=== PATIENT | female | born 1975 | race Caucasian/White ===

== ENCOUNTER → 2017-04-05 | Outpatient (CLI) | payer OTHER ==
[~2017-04-05] MED LIST: AMBIEN 10 MG TA10 MG PO; AMITRIPTYLINE; AMITRIPTYLINE H10 M1 PO; AMITRIPTYLINE H25 M2 PO; AMITRIPTYLINE H50 M2 PO; BACLOFEN 10MG T10 M1 PO; BACLOFEN 10MG T10 MG PO; CARBAMAZEPINE200 M2; CELEBREX 200 M200 MG PO; ELAVIL PO; FLEXERIL PO; IRON325 PO; LO-OVRAL-281 EACH PO; LYRICA 50 MG50 M1 PO; METHADONE HCL5 MG PO; MOVANTIK12.5 MG PO; MULTIVITAMIN; NAPROXEN 500MG500 MG PO; NEURONTIN 300300 M1; NEURONTIN 300300 M1 PO; NEXIUM40 MG PO; OXYCODONE HCL10 MG PO; OXYCODONE HCL15 MG PO; OXYCONTIN10 M1 PO; PERCOCET 7.5-31 EACH PO; REMERON15 MG PO; REMERON30 MG PO; REMERON45 MG PO; RESTORIL15 MG PO; RESTORIL30 MG PO; ROXICODONE5 M2 PO; SYNTHROID175 MCG PO; VITAMIN D 5050000 I1 PO; VITAMIN D2000 UNIT PO; XANAX 0.5 MG0.5 MG PO; tegretol PO; xanax
--- NOTE | 2017-04-07 09:59 | PAINCON ---
[facility] [address] [place] [address] PAIN MANAGEMENT CONSULTATION Name: DAVI LAWRENCE Room: [facility] Rm#: [id number] Admission: 04/05/17 Attend Phys: Leander Jennings Discharge: Date of : 75 Report #: [id number] THIS REPORT FOR: //name// CC: Celestino Marcus DATE OF SERVICE: 04/05/2017 The patient is a 41-year-old female being treated for neuropathic pain, RSD right upper extremity requiring high risk complex medication management. Last seen in pain clinic 02/08/2017. Continued on baseline medication including methadone 5 mg 2 tablets t.i.d., oxycodone 10 mg up to 5 a day, gabapentin 300 mg t.i.d., baclofen 10 mg 3 at bedtime, temazepam 30 mg at bedtime, and mirtazapine 30 mg at bedtime. Last random drug screen 05/25/2016, was positive for prescribed medications and no others. The patient returns to pain clinic today. She has been getting a little more active with her , they were going on recreational walks and trying to generally promote healthier lifestyle. Unfortunately, with the sub-zero weather in [place] past month, their outdoor walks have been somewhat curtailed. She returns to pain clinic today, notes pain is a 6-7 on a VAS, having somewhat of a flareup presently. PHYSICAL EXAMINATION: Shows a pleasant 41-year-old female, 5 feet 6 inches, 164 pounds, BMI is 26.6 kg/m2. Blood pressure is modestly elevated at 129/88, pulse 92, and respirations 16. Alert and oriented to person, place and time, judged to be a reasonable historian. She does appear a little depressed today, struggling with some increasing pain. Right upper extremity does appear a little more erythematous. Erythema and light touch allodynia noted in right upper extremity. Decreased range of motion with some swelling in the fingers on the right hand. Otherwise, physical exam is unchanged. We reviewed the fact that opiate medications are being used to provide analgesia adequate to support activities of daily living, not attempting to achieve a specific pain score on the 0-10 Visual Analog Scale. The current opiate medications are providing sufficient analgesia to allow the patient to participate in activities of daily living. The patient is not exhibiting any aberrant behavior suggestive of drug diversion. The patient is not having any adverse reactions to medications. The patient is not suffering from daytime somnolence or mental acuity changes. The patient is managing opiate-induced constipation with appropriate kcax-cpe-iasmekl agents and dietary considerations. The patient was counseled on concern for caution with operating a motor vehicle while [place] [address] PAIN MANAGEMENT CONSULTATION Name: DAVI LAWRENCE [id number] Admission: 04/05/17 Attend Phys: Leander Jennings Discharge: Date of : 75 Report #: [id number] A physical exam was performed and the patient's functional status was evaluated. All patients with back pain were advised against the bed rest greater than 4 days and were advised to return to normal activities. Pain score assessment was noted and the treatment plan was reviewed with the patient. All current medications, both prescribed and OTC were reviewed and reconciled on the electronic medical record. Tobacco screening was accomplished and smoking cessation was advised when indicated. BMI was noted and diet/exercise modification was recommended for all patients following outside normal parameters. I reviewed with the patient today their responsibilities to safeguard prescription medications, reviewed their responsibility to utilize medications only as prescribed by the physician. They are to seek and receive pain medications only from 1 physician group ( [facility]). They are to use 1 pharmacy and keep the clinic informed if they change pharmacies. Their responsibilities include making followup visits in a timely fashion and to avoid abrupt discontinuation of medication usage. Their responsibilities further include bringing their medications (bottles from the pharmacy with residual pills) to the visit for possible confirmation of pill counts and the patient understands it is their responsibility to submit to random drug screens to ensure both that the medications prescribed are present, and that no other controlled substances are present. All prescriptions provided today were generated electronically. ASSESSMENT: Neuropathic pain, right upper extremity reflex sympathetic dystrophy requiring high risk complex medication management. RECOMMENDATIONS: A long discussion with the patient today. We reviewed the fact that she is on roughly 190 mEq of morphine a day. This is the supratherapeutic dose. We talked about ultimately weaning opiate overtime. Presently with an acute flare, we will continue current medication unchanged for 1 month. On the "4-week release" oxycodone prescription, we will decrease from 150-120 tablets, decreasing from q.4 hours max 5 a day to q.6 hours max 4 a day. Follow up in 2 months for reevaluation. We will likely plan to decrease methadone from 2 tablets 3 times a day to 2 tablets in the morning, 1 at noon and 2 at night. We will try and further wean oxycodone as able. Discharged in good and stable condition. Follow up in 2 months for reevaluation. <ELECTRONICALLY SIGNED> By: Eric Marcus DO 04/07/17 0959 [id number] [id number] Hospital[facility]vin Marcus DO /elda
== END ==
LOC: M.PC 02:32
DX: G90.511 Complex regional pain syndrome I of right upper limb (principal); Z79.899 Other long term (current) drug therapy

== ENCOUNTER → 2017-05-31 | Outpatient (CLI) | payer OTHER ==
--- NOTE | 2017-06-07 07:59 | PAINCON ---
[address] [address] PAIN MANAGEMENT CONSULTATION Name: DAVI LAWRENCE Room: [facility] Abdalla#: [id number] Admission: 05/31/17 Attend Phys: Leander Jennings Discharge: Date of : 75 Report #: [id number] THIS REPORT FOR: //name// CC: Celestino Marcus DATE OF SERVICE: 05/31/2017 HISTORY OF PRESENT ILLNESS: The patient is a 41-year-old female being treated for neuropathic pain, right upper extremity RSD, requiring complex medication management, a component of some depression. Last visit on 04/05/2017, we had attempted to wean opiate; she was using oxycodone 15 mg up to 5 a day. We dropped down to 4 a day. She uses methadone 10 mg 2 tablets 3 times a day. Current opiate load is near 200 mEq of morphine. Returns to the pain clinic today. She is having increasing pain in the right upper extremity. She has obvious swelling in the right hand, increased erythema, increased hyperpathia and allodynia. She is losing strength in that right hand. Hand grasp is significantly diminished compared to the left. The patient is frustrated with increasing pain, trying to lower opiate. We pointed out that she is on an unsustainable level of opiate, we will need to wean at some point. Given the lack of efficacy of prior interventions including stellate ganglion blocks, we had a long discussion today about a spinal cord stimulator as a possible therapeutic option. 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 If we are going to trial, stimulator will be best for her to schedule in the early summer. I did give the patient printed and video literature regarding the high frequency Nevro spinal cord stimulator, which I think would be an excellent option. Did have a moderately prolonged visit today with the patient and her reviewing therapeutic concerns for supratherapeutic opiate use, hyperpathia and habituation. Opiate drug screen was accomplished today. No aberrant behavior suggestive of drug diversion, simply complying with opiate consent to treat contract. Again, I did provide the patient with printed and video literature regarding high frequency spinal cord stimulator (Nevro). We will continue baseline narcotic including methadone 5 mg 2 tablets b.i.d., roughly equivalent to 100 mg of morphine. We will resume oxycodone 10 mg up to 5 a day, roughly equivalent to 75 mg of morphine, total daily dose of 195 mEq of morphine. We will continue Remeron at bedtime for sleep along with temazepam, gabapentin unchanged, [place] [address] PAIN MANAGEMENT CONSULTATION Name: DAVI LAWRENCE Room: [facility] Rm#: [id number] Admission: 05/31/17 Attend Phys: Leander Jennings Discharge: Date of : 75 Report #: [id number] Discharged in good and stable condition after prolonged visit. Follow up in 2 months for reevaluation. We will answer any questions regarding stimulators at that time. We will continue that conversation as well. <ELECTRONICALLY SIGNED> By: Eric Marcus DO 06/07/17 0759 1404 [id number] Marcus DO /nt
== END ==
LOC: M.PC 04:53
DX: M79.2 Neuralgia and neuritis, unspecified (principal); F32.9 Major depressive disorder, single episode, unspecified; Z79.899 Other long term (current) drug therapy

== ENCOUNTER → 2017-07-26 | Outpatient (CLI) | payer OTHER ==
[~2017-07-26] MED LIST changes: +REMERON 30 MG T30 M1 PO
--- NOTE | 2017-07-31 08:35 | PAINCON ---
[facility] [address] [place] [address] PAIN MANAGEMENT CONSULTATION Name: ADVI LAWRENCE Room: [facility] Abdalla#: [id number] Admission: 07/26/17 Attend Phys: Leander Jennings Discharge: Date of : 75 Report #: [id number] THIS REPORT FOR: //name// CC: Celestino Marcus The patient is a pleasant 41-year-old female I have treated for quite some time for neuropathic pain, right upper extremity secondary to RSD. I believe I initially saw her as a patient back in 07/2008. Did a series of right stellate ganglion blocks with some incremental relief. Ultimately, we have titrated medication to functional status. We had ultimately escalated her analgesic regimen to include methadone 5 mg 2 tablets t.i.d. (30 mg of methadone roughly equivalent to 120 morphine equivalents) along with oxycodone up to 15 mg 5 a day. At a recent prior visit we had decreased oxycodone 10 mg 5 a day. She returned to the pain clinic today. Her last random drug screen on 05/31/2017 was positive for prescribed medications. We did review our opiate consent to treat contract again today. We had a prolonged visit today. She was seen from 8:25 to 8:55, greater than 50% of this 25+ minute visit was spent counseling the patient, reviewing concerns for opiate-induced hyperalgesia and concerns for supratherapeutic opiate load. The patient notes pain is about 4 to 5 on a VAS. She does little better in the warm weather. 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 She has been increasing physical activity recently. PHYSICAL EXAMINATION: Shows pleasant 41-year-old female, BMI is 26.9 kilograms per meter squared. Blood pressure 144/90, pulse 88 and respirations 16. Alert and oriented to person, place and time, judged to be a reasonable historian. Cervical range of motion is full. Does have hyperpathia and allodynia about the right forearm and wrist. Decreased hand grasp right side. Some skin changes are noted compatible with RSD. Otherwise, she is alert and oriented to person, place and time, judged to be a reasonable historian. Gait is tandem. Lower extremity strength is preserved. We reviewed the fact that opiate medications are being used to provide analgesia adequate to support activities of daily living, not attempting to achieve a specific pain score on the 0-10 Visual Analog Scale. The current opiate medications are providing sufficient analgesia to allow the patient to participate in activities of daily living. The patient is not exhibiting any aberrant behavior suggestive of drug diversion. The patient is not having any adverse reactions to medications. The patient is not suffering from daytime somnolence or mental acuity changes. The patient is managing opiate-induced constipation with appropriate yqmd-hfl-dsshc[place] [address] PAIN MANAGEMENT CONSULTATION Name: DAVI LAWRENCE Room: [facility]#: [id number] Admission: 07/26/17 Attend Phys: Leander Jennings Discharge: Date of : 75 Report #: [id number] considerations. The patient was counseled on concern for caution with operating a motor vehicle while using opiate medications. A physical exam was performed and the patient's functional status was evaluated. All patients with back pain were advised against the bed rest greater than 4 days and were advised to return to normal activities. Pain score assessment was noted and the treatment plan was reviewed with the patient. All current medications, both prescribed and OTC were reviewed and reconciled on the electronic medical record. Tobacco screening was accomplished and smoking cessation was advised when indicated. BMI was noted and diet/exercise modification was recommended for all patients following outside normal parameters. I reviewed with the patient today their responsibilities to safeguard prescription medications, reviewed their responsibility to utilize medications only as prescribed by the physician. They are to seek and receive pain medications only from 1 physician group ( [facility]). They are to use 1 pharmacy and keep the clinic informed if they change pharmacies. Their responsibilities include making followup visits in a timely fashion and to avoid abrupt discontinuation of medication usage. Their responsibilities further include bringing their medications (bottles from the pharmacy with residual pills) to the visit for possible confirmation of pill counts and the patient understands it is their responsibility to submit to random drug screens to ensure both that the medications prescribed are present, and that no other controlled substances are present. All prescriptions provided today were generated electronically. The patient is struggling with some anxiety and depression. States "her lows are lower" and she does not get the navneet and pleasure out of life that she had. I started Remeron to help with sleep 30 mg at bedtime and she thinks this has been helpful. She is asking for an increase and I think that certainly is reasonable. We will increase this to 45 mg at bedtime. We talked about need to wean opiate to comply more closely with CDC recommendations for opiate use, attempting to keep overall opioid use to below 90 mg MS equivalents. I discussed this at last visit and she has actually decreased her methadone typically using 2 in the morning, 1 at noon and 2 at night. I will further decrease her oxycodone 10 mg 5 a day down to Percocet 7.5/325 limiting 4 a day. I have enabled her to continue methadone 5 mg 2 tablets t.i.d. with strong encouragement to continue at her current 5 a day and hopefully in 1 month wean down to 4 a day. Nonetheless, I did provide sufficient prescription (methadone 5 mg, dispensed 180 tablets) to enable "rescue" dose and/or resumption back to 2 tablets t.i.d. if needed as we wean Percocet. Hopefully, we will continue to wean overall opiate load. Otherwise, continue baclofen unchanged 10 mg 3 tablets at bedtime, gabapentin 300 mg 1 in the morning and 2 at night, temazepam 30 [place] [address] PAIN MANAGEMENT CONSULTATION Name: DAVI LAWRENCE Room: [facility]#: [id number] Admission: 07/26/17 Attend Phys: Leander Jennings Discharge: Date of : 75 Report #: [id number] Remeron increase to 45 mg at bedtime. The patient was given prescriptions for multi-month. Follow up in 7 weeks for reevaluation. I did inform the patient and her that I will be leaving the practice. We will endeavor to have a physician from [facility] continue to manage her care. Lastly, we did discuss spinal cord stimulator. We have mentioned this at length in the past. She is starting to feel a little more comfortable with that idea, so she has been weaning opiate. I suggested that if we were to consider spinal cord stimulator, I would refer her to Dr. Vish Williamson for trial and implantation. They understand that Dr. Williamson works exclusively at [facility]. We would continue her medical care here at [place]. <ELECTRONICALLY SIGNED> By: Eric Marcus DO 07/31/17 0835 1323 [id number] Marcus DO /nt
== END ==
LOC: M.PC 02:58
DX: M79.2 Neuralgia and neuritis, unspecified (principal)

== ENCOUNTER → 2017-09-13 | Outpatient (CLI) | payer OTHER ==
--- NOTE | 2017-09-14 07:56 | PAINCON ---
[address] [address] PAIN MANAGEMENT CONSULTATION Name: DAVI LAWRENCE Room: [facility] Abdalla#: [id number] Admission: 09/13/17 Attend Phys: Leander Jennings Discharge: Date of : 75 Report #: [id number] THIS REPORT FOR: //name// CC: Celestino Marcus DATE OF SERVICE: 09/13/2017 The patient is a 41-year-old female I have seen for some 9 years for neuropathic pain, CRPS type 1, right upper extremity requiring complex medication management. Last seen in pain clinic 07/26/2017. We had a prolonged visit at that time and again today reviewing therapeutic options and considerations. We ultimately had titrated her to a fairly aggressive dose of opiate analgesics (over 220 mg morphine equivalent a day) for ongoing, rate limiting right upper extremity pain. We had started to wean somewhat over the past few clinic visits; decreased oxycodone 15 mg 5 a day to 4 a day and then to Percocet 10/325 four a day and most recently Percocet 7.5/325 four a day. Continued methadone 5 mg 2 tablets 3 times a day, talked about trying to drop an evening tablet. Continued gabapentin 300 mg 1 in the morning and 2 at night, Remeron 45 mg at bedtime, baclofen 30 mg at bedtime and Restoril 30 mg at bedtime. She returns to pain clinic today, we had another prolonged visit (greater than 25 minutes; 50% of time spent counseling patient). She notes that she did have some anger and frustration when we initially approached weaning her opiate analgesics, but ultimately she is very pleased with her functional status. In fact, she rates her pain a 3 on a VAS presently. She has had some trouble with 2 discrete dental abscesses, initially on the right and second one on the left maxillary side. She has had root canals on both of these and is currently on antibiotic therapy thought feels that these pain generators are slowly resolving. PHYSICAL EXAMINATION: Shows pleasant 5 feet 6 inches, 169 pound female, BMI is 27.3 kg per meter squared. Blood pressure 140/81, pulse 83, respirations 16. She is afebrile today (98.3). Cervical range of motion is adequate. She does have some detectable cervical adenopathy. Right arm does show change in skin, hyperpathia, allodynia and some dystrophy from about the forearm down. Otherwise, physical exam is unchanged. We reviewed the fact that opiate medications are being used to provide analgesia adequate to support activities of daily living, not attempting to achieve a specific pain score on the 0-10 Visual Analog Scale[place] [address] PAIN MANAGEMENT CONSULTATION Name: DAVI LAWRENCE Room: [facility]#: [id number] Admission: 09/13/17 Attend Phys: Leander Jennings Discharge: Date of : 75 Report #: [id number] medications are providing sufficient analgesia to allow the patient to participate in activities of daily living. The patient is not exhibiting any aberrant behavior suggestive of drug diversion. The patient is not having any adverse reactions to medications. The patient is not suffering from daytime somnolence or mental acuity changes. The patient is managing opiate-induced constipation with appropriate bpbk-yss-rcppbbu agents and dietary considerations. The patient was counseled on concern for caution with operating a motor vehicle while using opiate medications. A physical exam was performed and the patient's functional status was evaluated. All patients with back pain were advised against the bed rest greater than 4 days and were advised to return to normal activities. Pain score assessment was noted and the treatment plan was reviewed with the patient. All current medications, both prescribed and OTC were reviewed and reconciled on the electronic medical record. Tobacco screening was accomplished and smoking cessation was advised when indicated. BMI was noted and diet/exercise modification was recommended for all patients following outside normal parameters. I reviewed with the patient today their responsibilities to safeguard prescription medications, reviewed their responsibility to utilize medications only as prescribed by the physician. They are to seek and receive pain medications only from 1 physician group ( [facility]). They are to use 1 pharmacy and keep the clinic informed if they change pharmacies. Their responsibilities include making followup visits in a timely fashion and to avoid abrupt discontinuation of medication usage. Their responsibilities further include bringing their medications (bottles from the pharmacy with residual pills) to the visit for possible confirmation of pill counts and the patient understands it is their responsibility to submit to random drug screens to ensure both that the medications prescribed are present, and that no other controlled substances are present. All prescriptions provided today were generated electronically. ASSESSMENT: Chronic right upper extremity reflex sympathetic dystrophy, complex regional pain syndrome type 1, requiring complex medication management. RECOMMENDATION: Discussion with the patient today about therapeutic options. We would like to continue baseline medication unchanged, methadone 5 mg two tabs t.i.d., asking her to drop one evening tablet. We will do a pill count in 2 months to evaluate efficacy of trialing 5 methadone tabs/d (decreasing from 30 to 25 mg methadone) . May even be able to drop down to 4 methadone 5 mg tablets a day at next clinic visit in two months . Continue Percocet 7.5/325 four a day. Even at maximum dose this puts her at about 165 milligram equivalents of morphine a day, down about 33% overall from approximately six months ago. [facility] [address] [facility] [place] [address] PAIN MANAGEMENT CONSULTATION Name: DAVI LAWRENCE Shyla Room: [facility]#: [id number] Admission: 09/13/17 Attend Phys: Leander Jennings Discharge: Date of : 75 Report #: [id number] We talked again about a spinal cord stimulator as a possible therapeutic option as we continue to wean opiate. I suggested we would refer her for a trial & implant (if successful) with Dr. Vish Williamson if patient so desired in the future. I noted, with some chagrin, that it is actually a good that she did not have the trial and/or implant earlier, with the multiple dental abscesses (for fear of seeding the implant with bacteria). We would obviously want to ensure that the patient is far out from any infectious processes before considering moving forward with any interventional therapies. Ultimately, the patient was discharged in good and stable condition, seen in company with her . He is supportive and both were encouraged with the patient's status with modest opiate wean, we will continue trying to drop 1 methadone in the evening. Have her follow up with Dr. Ronald Sanchez in 2 months. Discharged in good and stable condition. Greater than 50% of the 25-minute visit was spent counseling the patient. <ELECTRONICALLY SIGNED> By: Eric Marcus DO 09/14/17 0756 [id number] 1854[facility] Hospitalmarvin Marcus DO /elda
== END ==
LOC: M.PC 04:15
DX: G90.511 Complex regional pain syndrome I of right upper limb (principal); Z79.899 Other long term (current) drug therapy

== ENCOUNTER → 2017-10-26 | Outpatient (CLI) | payer OTHER ==
--- NOTE | 2017-11-10 08:37 | PAINCON ---
[address] [address] PAIN MANAGEMENT CONSULTATION Name: DAVI LAWRENCE Room: [facility] UBALDO StewartAnastasia#: [id number] Admission: 10/26/17 Attend Phys: Gina Sanchez MD Discharge: Date of : 75 Report #: [id number] THIS REPORT FOR: //name// CC: Celestino Sanchez DATE OF SERVICE: 10/26/2017 PRIMARY CARE PHYSICIAN: Celestino Marroquin DO HISTORY OF PRESENT ILLNESS. 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 As you may recall, she has chronic pain associated with reflex sympathetic dystrophy involving her right arm. She has been followed by Dr. Eric Marcus over a number of years. She finds that her current medication regimen is working reasonably well. 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 She injured a number of the carpals in her right hand. Her hand was casted. After the second cast, she still had pain and discomfort noted a burning sensation. Since that time, she has been having pain consistent with reflex sympathetic dystrophy. 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 Notes that during the winter time her pain level increases. Oftentimes is better in the summer. Feels that her current medications are helpful. She was considering the possibility of a spinal cord stimulator to see whether or not this would be helpful Dr. Marcus had approach her with this option of spinal cord stimulation. At this juncture, she would like to continue on her with the conservative approach. She has returned to the [facility] for renewal of her medications. PAST MEDICAL HISTORY: Reflex sympathetic dystrophy and hypothyroidism. PAST SURGICAL HISTORY: Tonsils and adenectomy, cholecystectomy, bilateral knee scope. ALLERGIES: No known drug allergies. CURRENT MEDICATIONS: Alprazolam 0.5 mg q. 8 hours, baclofen 30 mg at bedtime, vitamin D3 5000 units, iron 325 mg, Neurontin 300 mg 1 tablet a.m., 2 tablets at bedtime, methadone 5 mg 2 tablets a.m., 2 tablets at noon, and 2 tablets at bedtime, Remeron 30 mg at bedtime, Movantik 12.5 mg, OxyIR 10 mg q. 6 hours p.r.n., Restoril/temazepam 15 mg at bedtime, Synthroid 175 mcg. 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 LABORATORY DATA: No new laboratory values are available at the time of the interview. PAIN CLINIC ASSESSMENT: [place] [address] PAIN MANAGEMENT CONSULTATION Name: DAVI LAWRENCE Shyla Room: [facility]#: [id number] Admission: 10/26/17 Attend Phys: Gina Sanchez MD Discharge: Date of : 75 Report #: [id number] 1. The patient has not been treated for osteoarthritis or rheumatoid arthritis. 2. Height 5 feet 6 inches, weight 172 pounds, BMI is 28. 3. Vital signs: Blood pressure 143/88, heart rate 88, respiratory rate 18, room air saturation 98, temperature 98.3. Pain intensity 6/10. 4. Fall risk. The patient has not fallen in the last 3 months. 5. Blood thinner. The patient is not on a blood thinning medication. 6. History of hypertension. The patient is not being treated for hypertension. 7. Opioid therapy greater than 6 weeks. The patient receives her medications from the Pain Clinic in regards to opioid treatment. 8. Risk assessment tool. 9. Function assessment tool. 10. Recreational drug use: The patient denies use of recreational drugs. 11. Tobacco: The patient denies use of tobacco. 12. Alcohol: The patient occasionally drinks alcoholic beverages. PHYSICAL EXAMINATION: GENERAL: The patient is a well-developed, well-nourished white female. Appears her stated age. She is alert and oriented x 3. Affect is appropriate. Speech is fluent. HEENT: Normocephalic, atraumatic. Extraocular eye muscles intact. Sclerae nonicteric. Mucous membranes are moist. Hearing is within normal limits. NECK: Without adenopathy or JVD. CHEST: Clear to auscultation. HEART: Regular rate. ABDOMEN: Nontender. EXTREMITIES: Upper extremity muscle decreased on the right. The patient has increased sensitivity to light touch burning sensation involving the right fingers. Notes some changes of color as well as some swelling in the affected area. Affected by hot and cold. Lower extremities judged to be 5/5 for the major muscle groups without sensory changes. Muscle strength is judged to be 5/5. The patient without scoliosis, kyphosis or lordosis. Does perceive some changes in finger length in the right hand regarding the index and ring finger. There appear to be longer than those on the contralateral side. IMPRESSION: 1. Complex regional pain syndrome involving the right upper extremity. 2. Hypothyroidism. RECOMMENDATIONS: We discussed treatment options with the patient. At this juncture, we will continue with her current medical regimen. She feels that this has been fruitful. She would like to continue working. States that without her current medical regimen she would not be able to continue her work. She is up to retire. She feels that the gabapentin, baclofen, temazepam, Percocet 7.5 mg tablets 4 tablets per day and methadone 5 mg 2 tablets a.m., 2 tablets afternoon and 2 tablets at night are efficacious. She is aware of the problems with opioid medications. She has seen this in the news. She keeps her [address] [facility], [place] [address] PAIN MANAGEMENT CONSULTATION Name: DAVI LAWRENCE Room: [facility]#: [id number] Admission: 10/26/17 Attend Phys: Gina Sanchez MD Discharge: Date of : 75 Report #: [id number] medication in a guarded area. Realizes that these medications can be a "addictive. The patient also understands that the effectiveness of the opioid medications can diminish over time secondary to intolerance. She would like to have her medications renewed. A script for these medications have been rewritten. She will follow up in the near future. We would like to thank you for letting us participate in her care. We hope she continues to improve. <ELECTRONICALLY SIGNED> By: Gina Sanchez MD 11/10/17 [id number]. Ronald Sanchez MD /GERMÁN
== END ==
LOC: M.PC 02:12
DX: G90.511 Complex regional pain syndrome I of right upper limb (principal); E03.9 Hypothyroidism, unspecified; Z79.899 Other long term (current) drug therapy

== ENCOUNTER → 2017-12-21 | Outpatient (CLI) | payer OTHER ==
[~2017-12-21] MED LIST changes: -REMERON 30 MG T30 M1 PO
--- NOTE | 2018-01-08 10:00 | PAINCON ---
[address] [address] PAIN MANAGEMENT CONSULTATION Name: DAVI LAWRENCE Room: [facility] UBALDO Abdalla#: [id number] Admission: 12/21/17 Attend Phys: Gina Sanchez MD Discharge: Date of : 75 Report #: [id number] THIS REPORT FOR: //name// CC: Celestino Suero DATE OF SERVICE: 12/21/2017 FOLLOWUP COMPLAINT: Here for medication renewal. 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 States that her class is somewhat kept challenging. 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 Overall, she feels that things are going reasonably well. She feels that the reflex sympathetic dystrophy, which involves her right hand, is reasonably controlled with her current medications. She has had no complications with medications over the last month. 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 As you recall, she injured her right hand. Since that time, she has had pain, which has been quite problematic. She suffers from complex regional pain syndrome. She feels that her reflex sympathetic dystrophy is stable. Rates it as a 6/10 at this juncture. She has had no new developments. She notes that the pain worsens. The weather has changed. Today, temperature is 41 degrees, it was about 90 degrees a week ago. She has returned today for renewal of her medications. ALLERGIES: No known drug allergies. CURRENT MEDICATIONS: Alprazolam 0.5 mg q. 8 hours, baclofen 30 mg at bedtime, vitamin D3 5000 units, iron 325 mg, Neurontin 300 mg 1 tablet every morning and 2 tablets at bedtime, methadone 5 mg tablets 2 tablets in the morning, 2 tablets afternoon, and 2 tablets at bedtime, Remeron 30 mg at bedtime, Movantik 12.5 mg, oxycodone IR 10 mg q. 6 hours p.r.n., Restoril 30 mg at bedtime, and Synthroid 175 mcg. PAIN CLINIC ASSESSMENT/PQRS: 1. The patient is not being treated for osteoarthritis. She has not been treated for rheumatoid arthritis. 2. Height 5 feet 6 inches, weight 173 pounds, BMI is 28. 3. Vital signs: Blood pressure 164/92, heart rate 89, respiratory rate 16, room air saturation 97%, temperature 98.4. 4. Pain intensity: 6/10. 5. Fall risk: The patient has not fallen in the last 3 months. 6. Blood thinner: The patient is not on a blood thinning medication. 7. Hypertension: The patient is not being treated for hypertension. 8. Risk assessment tool: The patient is low [place] [address] PAIN MANAGEMENT CONSULTATION Name: DAVI LAWRENCE Room: [facility]#: [id number] Admission: 12/21/17 Attend Phys: Gina Sanchez MD Discharge: Date of : 75 Report #: [id number] 9. Functional assessment tool. 10. Recreational drug use: The patient denies use of recreational drugs. 11. Tobacco: The patient denies use of tobacco. 12. Alcohol: The patient occasionally uses alcoholic beverages. PHYSICAL EXAMINATION: GENERAL: The patient is a well-developed, well-nourished white female. Appears her stated age. She is alert and oriented x 3. Her affect is appropriate. Speech is fluent. HEENT: Normocephalic, atraumatic. Extraocular eye muscles intact. Sclerae nonicteric. Mucous membranes are moist. Hearing is within normal limits. NECK: Without adenopathy or JVD. CHEST: Clear to auscultation without rales. HEART: Regular rate. S1 and S2. ABDOMEN: Nontender. Bowel sounds present. MUSCULOSKELETAL: Upper extremity muscle strength is decreased on the right. The patient has increased sensitivity to touch on the right side with burning sensation. She reaches forward to shake hands with her left hand. She keeps the sympathetically injured hand in a carrying position. Muscle is judged to be 5/5 for the left upper extremity and 4/5 for the right upper extremity. The patient does perceive some changes in her finger length on the right hand regarding the index and ring finger. It appears to be longer than those on the contralateral side. IMPRESSION: 1. Complex regional pain syndrome involving the right upper extremity. 2. Hypothyroidism. RECOMMENDATIONS: We discussed treatment options with the patient. We will continue with her current medical regimen. She finds that the medication is helpful and it enables her to stay gainfully employed. 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 She would not be able to do this without the use of her medications. States that she does not have any problems with mentation. She thinks clearly. She is not having any problems with the methadone medication. She is aware that opioid medications over a prolonged period of time can cause some problems with dependency as well as some lessening of their effect secondary to tolerance. She would like to continue with the medication. A script for her medications have been renewed. We would like to thank you for letting us participate in her care. We will have her follow up in 2 months. <ELECTRONICALLY SIGNED> By: Gina Sanchez MD 01/08/18 [id number]. Ronald Sanchez MD /nt
== END ==
LOC: M.PC 04:53
DX: G90.511 Complex regional pain syndrome I of right upper limb (principal); E03.9 Hypothyroidism, unspecified; Z79.899 Other long term (current) drug therapy

== ENCOUNTER → 2018-02-13 | Outpatient (CLI) | payer OTHER ==
[~2018-02-13] MED LIST changes: +REMERON 30 MG T30 M1 PO
--- NOTE | ~2018-02-13 | PAINCON ---
[address] [address] PAIN MANAGEMENT CONSULTATION Name: DAVI LAWRENCE Room: [facility] UBALDO Abdalla#: [id number] Admission: 02/13/18 Attend Phys: Gina Sanchez MD Discharge: Date of : 75 Report #: [id number] THIS REPORT FOR: //name// CC: Celestino Sanchez DATE OF SERVICE: 02/13/2018 FOLLOWUP HISTORY: Here for medication renewal, things are going reasonably well. 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 She states that her class continues to be challenging. 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 Overall, things are going reasonably well. She has a history of reflex sympathetic dystrophy involving her right hand. As you may recall, she was injured it while she was doing karate. She does have a master black belt. This was about 9 years ago. Finds that her medications at this juncture continue to be helpful. She is able to remain clear. Pain is managed. She was able to continue to teacher class. Overall, she rates her pain as a 6/10. Continues to have pain involving the right hand. Has noted the pain has increased. The temperature outside is gone ____. Temperature is 24 degrees this morning. He continues to suffer from complex regional pain syndrome. She has had no new problems since we saw her last. She has returned today for renewal of her medications. ALLERGIES: No known drug allergies. CURRENT MEDICATIONS: Alprazolam 0.5 mg q. 8 hours, baclofen 30 mg at bedtime, vitamin D3 5000 units, iron 325 mg, Neurontin 300 mg every morning, 2 tablets at bedtime, methadone 5 mg tablets 2 tablets in the morning, 2 tablets afternoon and 2 tablets at bedtime, Remeron 30 mg at bedtime, Movantik 12.5 mg, oxycodone IR 10 mg q.6., Restoril 30 mg at bedtime, Synthroid 175 mcg. PAIN CLINIC ASSESSMENT/PQRS: 1. The patient is not being treated for osteoarthritis. She is not being treated for rheumatoid arthritis. 2. Height 5 feet 6 inches, weight 176 pounds, BMI is 28.4. 3. Vital signs: Blood pressure 154/80, heart rate 83, respiratory rate 18, room air saturation 99%, temperature 98.2. 4. Pain intensity: 4/10. 5. Fall history: The patient has not fallen in the last 3 months. 6. Blood thinner. The patient is not on a blood thinning medication. 7. Hypertension. The patient is not being treated for hypertension. 8. Risk assessment tool is low for the patient with use of opioid medications. 9. Functional assessment tool. 10. Recreational drug use. The patient denies [place] [address] PAIN MANAGEMENT CONSULTATION Name: DAVI LAWRENCE Room: [facility]#: [id number] Admission: 02/13/18 Attend Phys: Gina Sanchez MD Discharge: Date of : 75 Report #: [id number] 11. Tobacco: The patient denies use of tobacco. 12. Alcohol: The patient occasionally drinks an alcoholic beverages. PHYSICAL EXAMINATION: GENERAL: The patient is a well-developed, well-nourished white female. Appears stated age. She is alert and oriented x 3. Her affect is appropriate. Speech is fluent. HEENT: Normocephalic, atraumatic. Extraocular eye muscles intact. Sclerae nonicteric. Mucous membranes are moist. Hearing is within normal limits. NECK: Without adenopathy or JVD. CHEST: Clear to auscultation without rales or rhonchi. HEART: Regular rate. S1, S2. ABDOMEN: Nontender. Bowel sounds present. MUSCULOSKELETAL: Upper extremity muscle strength on the right is gauged a 4/5. Does continue to have some increased sensitivity to light touch on the right side with a burning sensation. Her arm in a somewhat dependent position. The patient continues to have some perceived changes in her finger length on the right hand regarding the index and ring finger. She appears to be longer than the contralateral side. IMPRESSION: 1. Complex regional pain syndrome involving the right upper extremity. 2. Hypothyroidism. RECOMMENDATIONS: We discussed treatment options with the patient. The patient feels that her medications are working reasonably well. Keeps her medication in a guarded area. Finds the medication continues to enable her to stay gainfully employed. Does not have any problems with mentation. Sensorium is clear. She would like to continue with her medications. A script for these medications have been written. She will continue with Remeron 30 mg at bedtime, oxycodone 7.5/325 one p.o. q.6 hours p.r.n. pain, methadone 15 mg 2 tablets 1 p.o. t.i.d., methadone at that time. She will call us if she has any concerns. By: [id number]. Ronald Sanchez MD /elda
== END ==
LOC: M.PC 04:54
DX: G90.511 Complex regional pain syndrome I of right upper limb (principal); E03.9 Hypothyroidism, unspecified; Z79.899 Other long term (current) drug therapy

== ENCOUNTER → 2018-04-10 | Outpatient (CLI) | payer OTHER ==
[~2018-04-10] MED LIST changes: +BIRTH CONTROL; +VITAMIN D1000 UNI1 PO
--- NOTE | ~2018-04-10 | PAINCON ---
[address] [address] PAIN MANAGEMENT CONSULTATION Name: DAVI LAWRENCE Room: [facility] LINDY Rm#: [id number] Admission: 04/10/18 Attend Phys: Gina Sanchez MD Discharge: Date of : 75 Report #: [id number] THIS REPORT FOR: //name// CC: Celestino Suero DATE OF SERVICE: 04/10/2018 FOLLOWUP/CHIEF COMPLAINT: Here for medications, they are still quite helpful. 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 She has a history of reflex sympathetic dystrophy involving her right arm and hand. As you recall, she injured it while performing karate. 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 This was about 9 years ago when the injury occurred. She continues to have pain and discomfort, which is problematic. She finds that use of her current medications enable her to stay gainfully employed. She rates her pain as a 5/10. She still has problems with gripping in the arm, usually carries it in a dependent position. She notes that the pain is worse at this juncture because the temperature has gotten colder this month, temperature has been in the 20s. She and her feel that things are going reasonably well. ALLERGIES: No known drug allergies. CURRENT MEDICATIONS: Alprazolam 0.5 mg q. 8 hours, baclofen 30 mg at bedtime, vitamin D3 5000 units, iron 325 mg, Neurontin 300 mg every morning and 2 tablets at bedtime, methadone 5 mg 2 tablets in the morning, 2 tablets afternoon and 2 tablets at bedtime, Remeron 30 mg at bedtime, Movantik 12.5 mg, Oxycodone IR 10 mg q. 6 hours p.r.n., Restoril 30 mg at bedtime, and Synthroid 175 mcg PAIN CLINIC ASSESSMENT AND PQRS: 1. The patient is not being treated for rheumatoid arthritis or osteoarthritis. 2. Height 5 feet 6 inches, weight 175 pounds, BMI is 28. 3. Vital signs: Blood pressure 148/81, heart rate 89, respiratory rate 18, room air saturation 99%, temperature is 98.7. 4. Pain intensity: 5-6/10. 5. Fall history: The patient has not fallen in the last 3 months. 6. Blood thinner: The patient is not on a blood thinning medication. 7. Hypertension: The patient is not being treated for hypertension. 8. Opioid medications use: The patient receives her medications from one source from the [facility]. 9. Functional assessment tool. 10. Recreational drug use: The patient denies use of recreational drugs. 11. Tobacco: The [place] [address] PAIN MANAGEMENT CONSULTATION Name: MELINDADAVI Shyla Room: [facility]#: [id number] Admission: 04/10/18 Attend Phys: Gina Sanchez MD Discharge: Date of : 75 Report #: [id number] 12. Alcohol: The patient occasionally drinks alcoholic beverages. PHYSICAL EXAMINATION: GENERAL: The patient is a well-developed, well-nourished, white female. She appears her stated age. She is alert and oriented x 3. Her affect is appropriate. Speech is fluent. HEENT: Normocephalic, atraumatic. Extraocular eye muscles intact. Sclerae nonicteric. Mucous membranes are moist. CHEST: Clear to auscultation without rhonchi or rales. HEART: Regular rate, S1 and S2. ABDOMEN: Nontender. Bowel sounds present. MUSCULOSKELETAL: Without significant scoliosis, lordosis or kyphosis. Right arm muscle strength is judged to be 4/5. The patient carries it in a dependent position. Light touch causes pain and discomfort. There is a burning sensation, which continues, and perceives some changes in her finger sensations. IMPRESSION: 1. Complex regional pain syndrome involving the right upper extremity, status post trauma with karate 9 years ago. 2. Hypothyroidism. RECOMMENDATIONS: We will continue with the patient's current medications. A script for her medications for baclofen 30 mg at bedtime, gabapentin 300 mg in the morning and 600 mg in the evening, Restoril 30 mg at bedtime, methadone 5 mg tablets, total of 10 mg a.m., 10 mg at noon, and 5-10 mg at bedtime. The patient overall feels that pain is about 40% improved with her current medical regimen. We will continue with her medications. Hopefully, she will continue to do well. We would like to thank you for letting us participate in her care. We hope she continues to improve. By: [id number]. Ronald Sanchez MD /elda
== END ==
LOC: M.PC 08:10
DX: G89.4 Chronic pain syndrome (principal); E03.9 Hypothyroidism, unspecified; Z79.899 Other long term (current) drug therapy

== ENCOUNTER → 2018-06-19 | Outpatient (CLI) | payer OTHER ==
[~2018-06-19] MED LIST changes: +CELEXA20 MG PO; +COLACE100 MG PO
--- NOTE | ~2018-06-19 | PAINCON ---
[address] [address] PAIN MANAGEMENT CONSULTATION Name: DAVI LAWRENCE Room: [facility] UBALDO Abdalla#: [id number] Admission: 06/19/18 Attend Phys: Gina Sanchez MD Discharge: Date of : 75 Report #: [id number] THIS REPORT FOR: //name// CC: Celestino Sanchez DATE OF SERVICE: 06/19/2018 CHIEF COMPLAINT: Here for medications. 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 As you may recall, she suffered a stroke. She has some weakness involving her left side. She has been undergoing physical therapy. She feels that she is making some improvement. She finds that her right side, which is usually the side which is most problematic because of her reflex sympathetic dystrophy is the arm that she has to use ____. She has pain in her right hand as well as some left-sided weakness. She states that her left side of her body feels as though it is waking up. There is a buzzing sensation and similar to that which one would experience ____ on a extremity and it goes to sleep. She rates her pain as a 5/10. She feels that her methadone, Percocet, gabapentin, and baclofen medications are helpful. CURRENT MEDICATIONS: Alprazolam 0.5 mg q.8 hours, baclofen 30 mg at bedtime, vitamin D3 5000 units, iron 325 mg, Neurontin 300 mg q.8 hours and 2 tablets at bedtime, methadone 5 mg 2 tablets in the morning, 2 tablets at bedtime, Remeron 30 mg at bedtime, Movantik 12.5 mg, oxycodone IR 10 mg q.6 hours, Restoril 30 mg at bedtime, and Synthroid 175 mcg. ALLERGIES: No known drug allergies. PAIN CLINIC ASSESSMENT AND PQRS: 1. Osteoarthritis. The patient is not being treated for osteoarthritis. She is not being treated for rheumatoid arthritis. 2. Pain intensity is 5/10. 3. Fall history: The patient has not fallen in the last 3 months. She is in a wheelchair and receiving assistance in moving. 4. Blood thinner. The patient is not on a blood thinning medication. 5. Hypertension. The patient is not being treated for hypertension. 6. Opioids greater than 6 weeks. The patient receives her medications from one source, the pain clinic. 7. Functional assessment tool. 8. Recreational drug use. The patient denies use of recreational drugs. 9. Tobacco: The patient denies use of tobacco. 10. Alcohol. The patient denies use of alcoholic beverages. PHYSICAL EXAMINATION: [place] [address] PAIN MANAGEMENT CONSULTATION Name: DAVI LAWRENCE Room: [facility]#: [id number] Admission: 06/19/18 Attend Phys: Gina Sanchez MD Discharge: Date of : 75 Report #: [id number] GENERAL: The patient is a well-developed white female. She is in a wheelchair. She is assisted by her . Her left side is quite weak. She is able to move with assistance of her right hand. Height is 5 feet 6 inches, weight is 182 pounds, and BMI is 30. VITAL SIGNS: Blood pressure is 141/92, heart rate is 72, respiratory rate is 18, and temperature is 98.5. HEENT: Normocephalic, atraumatic. Extraocular eye muscles intact. The patient has somewhat of a droop on the left side from the nasolabial fold. She is able to stick her tongue out straight. HEART: Regular rate, S1 and S2. ABDOMEN: Nontender. The patient without a history of scoliosis, kyphosis, or lordosis. Right arm is weak. She uses it to manipulate the left side. The patient has a brace on the left lower extremity. She complains of pain and discomfort in the left knee as well as down the ankle area. The patient has +2 edema in the lower extremity. Edema has noticed up in the area of her knee as well. 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 RECOMMENDATIONS: The patient has pain in the knee and ankle. I think this is because of some swelling and edema in the lower extremity. We would recommend that the patient try as much as possible to keep the left lower extremity elevated. We will continue with her medications. A script for her medications have been rewritten: Remeron 30 mg 1 p.o. at bedtime, methadone 5 mg tablets, 180 tablets, the patient will take them as directed; oxycodone 7.5 mg 1 p.o. q.4-6 hours, a total of 120 tablets have been dispensed; Restoril 30 mg at bedtime, gabapentin 300 mg tablets, 2 tablets in a.m., 1 in midday, and 2 at bedtime, 150 tablets have been written; and baclofen 10 mg 3 tablets p.o. at bedtime. She will call us if she has any concerns. We would like to thank you for letting us to participate in her care. Hopefully, she will continue to bounce back quickly. By: [id number]. Ronald Sanchez MD /GERMÁN
== END ==
LOC: M.PC 04:47
DX: I69.362 Other paralytic syndrome following cerebral infarction affecting left dominant side (principal); Z79.899 Other long term (current) drug therapy

== ENCOUNTER → 2018-08-14 | Outpatient (CLI) | payer OTHER ==
[~2018-08-14] MED LIST changes: +ZOLOFT50 MG PO
--- NOTE | ~2018-08-14 | PAINCON ---
[address] [address] PAIN MANAGEMENT CONSULTATION Name: DAVI LAWRENCE Room: [facility] UBALDO Abdalla#: [id number] Admission: 08/14/18 Attend Phys: Gina Sanchez MD Discharge: Date of : 75 Report #: [id number] THIS REPORT FOR: //name// CC: Celestino Sanchez DATE OF SERVICE: 08/14/2018 CHIEF COMPLAINT: Here for renewal of medication. 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 As you recall, she suffered from a stroke. She continues to improve. She has gone from being pretty much wheelchair bound to now she is walking and using a cane. She continues to have pain, which is 9/10 at this juncture. As you may recall, she has had some problems with her right hand. This was painful secondary to reflex sympathetic dystrophy. She has had to use this painful right side. She has paresis and weakness in her left side. She is unable to use her left hand for activities. She feels that her medication is helpful. There have been some problems with her insurance. They did not pay for her Percocet medications. They are not sure why the insurance company declined it. They would like to continue with these medications because they help her through this painful situation. She continues with physical therapy activities. Continues to feel that left side of her body feels as though it is waking up. Continues to have a buzzing sensation similar to that one experiences when one extremity goes to sleep. Feels that her methadone, Percocet, gabapentin, and baclofen medications remain helpful. ALLERGIES: No known drug allergies. CURRENT MEDICATIONS: Alprazolam 0.5 mg q. 8 hours, baclofen 30 mg at bedtime, vitamin D3 5000 units, iron 325 mg, Neurontin 2 tablets morning, one midday, 2 evening, methadone 5 mg 2 tablets in the morning, 2 tablets at bedtime, Remeron 30 mg at bedtime, Movantik 12.5 mg, oxycodone IR 10 mg q.6 hours, Restoril 30 mg at bedtime, and Synthroid 175 mcg. PAIN CLINIC ASSESSMENT AND PQRS: 1. Osteoarthritis. The patient is not being treated for osteoarthritis. She is not being treated for rheumatoid arthritis. 2. Pain intensity 9/10 with the rain and pain associated with use of her right hand. 3. Fall history: The patient has not fallen in the last 3 months. She is ambulating in a wheelchair at times and moving with assistance. 4. Blood thinner. The patient is not on a blood thinning medication. 5. Hypertension. The patient is not being treated for hypertension. 6. Opioid greater than 6 weeks. The patient receives her medication through one source[place] [address] PAIN MANAGEMENT CONSULTATION Name: BARTMELLKARIEDAVI Shyla Room: [facility]#: [id number] Admission: 08/14/18 Attend Phys: Gina Sanchez MD Discharge: Date of : 75 Report #: [id number] 7. Functional assessment tool. 8. Recreational drug use. The patient denies use of recreational drugs. 9. Tobacco: The patient denies use of tobacco. 10. Alcohol: The patient denies use of alcoholic beverages. PHYSICAL EXAMINATION: GENERAL: The patient is a well-developed, well-nourished white female. She has walked from the waiting room into the examination area on her own with use of a cane. Her is present and assisting. Her left side still remains weak. Moves her right hand for most activities. Still has problems with movement of her left hand. VITAL SIGNS: Blood pressure 149/83, heart rate 85, respiratory rate 16, room air saturation 99%, temperature is 98.1. HEENT: Normocephalic, atraumatic. Extraocular eye muscles intact. Sclerae nonicteric. The patient has a ____ in the sclerae of her left eye. States that she was trying to remove a contact. The patient has left droop on the left side of the nasolabial fold. HEART: Regular rate. S1, S2. ABDOMEN: Nontender. MUSCULOSKELETAL: The patient without scoliosis, kyphosis, or lordosis. Weakness of the left side. The patient walks with an antalgic gait. Has a brace on her left lower extremity. Complains of pain and discomfort in the left knee down to the area of the ankle. Some edema in the lower extremity less pronounced than at the last visit. IMPRESSION: 1. 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 2. Complex regional pain syndrome involving the right upper extremity, status post trauma with karate 9 years ago. 3. Hypothyroidism. RECOMMENDATIONS: We discussed treatment options with the patient. At this juncture, we will continue with her medications. I feel that her medications are very beneficial. A script for her medications have been written. The patient will continue with Remeron 30 mg at bedtime. She will also continue with methadone 2 tablets t.i.d. 180 tablets have been provided, Percocet 7.5 mg 120 tablets. We would recommend the patient continue with this medication, it is important in her recovery. We called her insurance carrier to see why they did not pay for this medication. We will continue to advocate for the patient. She should receive her medications. These are all very necessary to improve and speed up her recovery. The patient will take baclofen 10 mg 1 p.o. t.i.d. The patient's gabapentin will be increased to 2 tablets p.o. t.i.d. She will call us [place] [address] PAIN MANAGEMENT CONSULTATION Name: DAVI LAWRENCE Shyla Room: [facility]#: [id number] Admission: 08/14/18 Attend Phys: Gina Sanchez MD Discharge: Date of : 75 Report #: [id number] We would like to thank you for letting us participate in her care. We hope she continues to improve. By: [id number]. Ronald Sanchez MD /elda
== END ==
LOC: M.PC 01:44
DX: I69.364 Other paralytic syndrome following cerebral infarction affecting left non-dominant side (principal); G82.20 Paraplegia, unspecified; G90.511 Complex regional pain syndrome I of right upper limb; E03.9 Hypothyroidism, unspecified; Z79.899 Other long term (current) drug therapy; Z79.891 Long term (current) use of opiate analgesic

== ENCOUNTER → 2018-10-11 | Outpatient (CLI) | payer OTHER ==
[~2018-10-11] MED LIST changes: +BACLOFEN20 MG PO; +MYRBETRIQ50 MG PO
--- NOTE | ~2018-10-11 | PAINCON ---
[address] [address] PAIN MANAGEMENT CONSULTATION Name: DAVI LAWRENCE Room: [facility] UBALDO Abdalla#: [id number] Admission: 10/11/18 Attend Phys: Gina Sanchez MD Discharge: Date of : 75 Report #: [id number] THIS REPORT FOR: //name// CC: Celestino Sanchez DATE OF SERVICE: 10/11/2018 CHIEF COMPLAINT: "Here for medications and I am making some progress." HISTORY: The patient is a 42-year-old female who has been followed in the pain clinic. 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 She is in the process of recovering from the stroke. She works out twice weekly in physical therapy. She feels like she is making some progress. She feels that her medications are helpful. Feels that the oxycodone medication 5 times daily has been beneficial in helping her increase her activity. She is undergoing occupational therapy as well as physical therapy. She is undergoing speech therapy. She is in the process of trying to get ready to go to return to school for the current school year. Overall, things are going as well as she could have except. She would like for things to have been better yesterday, but is aware that it does take a bit of time to improve. She has had no complications with her medications. Overall, things are going reasonably well and she would like to continue with her medications. She feels that her left side is getting somewhat better. She is walking without use of a cane. She does still have some weakness on the left side. Notes that her right side, which has some signs of chronic pain has improved somewhat. She would like to have her medications renewed today. She rates her pain as a 5/10. ALLERGIES: No known drug allergies. CURRENT MEDICATIONS: Alprazolam 0.5 mg q. 8 hours p.r.n., baclofen of 30 mg at bedtime, vitamin D3 5000 units, iron 325 mg, Neurontin 2 tablets in the morning, 1 in midday, 2 in the evening, methadone 5 mg 2 tablets in the morning and 2 tablets at bedtime, Remeron 30 mg at bedtime, Movantik 12.5 mg, OxyIR 10 mg q. 4 hours, Restoril 30 mg at bedtime and Synthroid 175 mcg. PAIN CLINIC ASSESSMENT AND PQRS: 1. Osteoarthritis. The patient has not been treated for osteoarthritis. She has not been treated for rheumatoid arthritis. 2. Pain intensity 5/10. 3. Height 5 feet 6 inches, weight 201 pounds, BMI is 33. 4. Vital Signs: Blood pressure 141/69, heart rate 70, respiratory rate 16, room air saturation 96%, and temperature is 98.2. 5. Fall risk. The patient has not fallen in the last 3 months. 6. Blood thinner. The patient is not on a blood thinning medication. 7. Hypertension. The patient [place] [address] PAIN MANAGEMENT CONSULTATION Name: DAVI LAWRENCE Room: [facility]#: [id number] Admission: 10/11/18 Attend Phys: Gina Sanchez MD Discharge: Date of : 75 Report #: [id number] 8. Opioids greater than 6 weeks. 9. Risk assessment tool, low for opioid use. 10. Functional assessment tool. 11. Recreational drug use: The patient denies. 12. Tobacco: The patient denies. 13. Alcohol: The patient denies use of alcoholic beverages. PHYSICAL EXAMINATION: GENERAL: The patient is a well-developed, well-nourished white female. Appears her stated age. She is alert and oriented x 3. She still has some right-sided weakness on her mouth. Speech is much improved. HEENT: Normocephalic, atraumatic. Extraocular eye muscles intact. Sclerae nonicteric. Mucous membranes are moist. Left nasolabial fold more prominent. HEART: Regular rate. S1, S2. ABDOMEN: Nontender. Bowel sounds present. EXTREMITIES: Upper extremity muscle strength is judged to be 4+ on the right and 5- on the left. The patient walks with antalgic gait. She has a lift on her left foot for footdrop. She has some pain down into the left ankle. She has some edema in the lower extremity. IMPRESSION: 1. Status post cerebrovascular accident with paraplegia on the left. 2. Complex regional pain syndrome involving the right upper extremity, status post karate injury 9 years ago. 3. Hypothyroidism. RECOMMENDATIONS: We discussed treatment options with the patient. At this juncture, the patient feels that an increase in her baclofen might be beneficial. We will increase her baclofen to 40 mg daily. She will continue with her medications. A script for her medications of Remeron 30 mg at bedtime, methadone 5 mg, 2 tablets p.o. t.i.d., oxycodone 7.5 mg 1 p.o. q. 4 hours have all been rewritten. A script for baclofen 20 mg tablets 2 tablets daily and gabapentin have been rewritten. The patient will call us if she has any concerns. We will continue with the patient's complex medical regimen to help control her pain. We would like to thank you for letting us participate in her care. We are glad she is improving. By: [id number]. Ronald Sanchez MD /elda
== END ==
LOC: M.PC 04:34
DX: G90.511 Complex regional pain syndrome I of right upper limb (principal); E03.9 Hypothyroidism, unspecified; Z86.73 Personal history of transient ischemic attack (TIA), and cerebral infarction without residual deficits; Z79.899 Other long term (current) drug therapy

== ENCOUNTER → 2018-12-06 | Outpatient (CLI) | payer OTHER ==
--- NOTE | ~2018-12-06 | PAINCON ---
[address] [address] PAIN MANAGEMENT CONSULTATION Name: DAVI LAWRENCE Room: [facility] UBALDO Abdalla#: [id number] Admission: 12/06/18 Attend Phys: Gina Sanchez MD Discharge: Date of : 75 Report #: [id number] THIS REPORT FOR: //name// CC: Celestino Sanchez DATE OF SERVICE: 12/06/2018 CHIEF COMPLAINT: Here for medication renewal. HISTORY: The patient is a 43-year-old female who has been followed in the pain clinic. 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 She is working about 4 days a week to increase her strength. Feels that her medications continue to be helpful. She is staying as active as possible. She is describing to find a physical therapist in an outpatient setting that would help her deal with her neural problems. She feels that her pain is about 50% improved with her current medical regimen. Notes that activity as well as changes in temperature can be problematic. Pain improves with rest. Continues to have pain and discomfort involving her right side because of the reflex sympathetic dystrophy-type irritation, but continues to have some weakness and flaccid paralysis involving her left arm. ALLERGIES: No known drug allergies. CURRENT MEDICATIONS: Alprazolam 0.5 mg q.8 hours p.r.n., baclofen 30 mg at bedtime, vitamin D3 5000 units, iron 325 mg, Neurontin 2 tablets in the morning, 1 midday and 2 in the afternoon, methadone 5 mg 2 tablets in the morning and 2 tablets at bedtime, Remeron 30 mg at bedtime, Movantik 12.5 mg, OxyIR 10 mg q.4 hours p.r.n., Restoril 30 mg at bedtime, Synthroid 175 mcg. PAIN CLINIC ASSESSMENT AND PQRS: 1. The patient is not being treated for osteoarthritis. She is not being treated for rheumatoid arthritis. 2. Height 5 feet 6 inches, weight 200 pounds, BMI is 32.0. 3. Vital Signs: Blood pressure 152/93, heart rate 81, respiratory rate 16, room air saturation is 96%, temperature is 98.8. 4. Pain intensity, /10. 5. Fall history. The patient has not fallen in the last 3 months. Does walk with a brace on the left foot secondary to inability to dorsiflex her foot. The gait is that of a drop foot. 6. Blood thinner. The patient is not on a blood thinning medication. 7. Hypertension. The patient has been treated for hypertension. 8. Opioids greater than 6 weeks. The patient received medication from one source, the pain clinic. 9. Risk assessment tool, low [place] [address] PAIN MANAGEMENT CONSULTATION Name: DAVI LAWRENCE Room: [facility]#: [id number] Admission: 12/06/18 Attend Phys: Gina Sanchez MD Discharge: Date of : 75 Report #: [id number] 10. Functional assessment tool. 11. Recreational drug use, the patient denies. 12. Tobacco: The patient denies. 13. Alcohol: The patient denies use of alcoholic beverages. She would like to try a minimal amount of alcohol p.r.n. in the evening. She feels that this would be somewhat helpful to relax her. PHYSICAL EXAMINATION: GENERAL: The patient is a well-developed, well-nourished, white female. Appears her stated age. She is alert and oriented x 3. Still has some right-sided weakness in her mouth. Speech is much improved. HEENT: Normocephalic, atraumatic. Extraocular eye muscles intact. Sclerae nonicteric. Left nasolabial fold less prominent. HEART: Regular rate. S1, S2. ABDOMEN: Nontender. Bowel sounds present. EXTREMITIES: Upper extremity muscle strength on the right judged to be 4/5 for the major muscle groups and 2/5 for the left upper extremity. The patient has a lift on her left foot to help with foot drop. Continues to have some pain down into the left ankle. Some edema in the lower extremities. IMPRESSION: 1. Status post cerebrovascular accident with paraplegia on the left. 2. Complex regional pain syndrome involving the right arm, status post karate injury 9 years ago. 3. Hypothyroidism. RECOMMENDATIONS: We discussed treatment options with the patient. At this juncture, we will continue with her current medical regimen. A script for her medications of temazepam 30 mg, methadone 10 mg a.m. and 10 mg at noon and 5-10 mg at bedtime has been rewritten. The patient will also continue with the oxycodone 1 tablet p.o. 5 times a day to help with pain control as she continues to undergo physical therapy. Baclofen 20 mg 1 p.o. b.i.d. and gabapentin 300 mg 1 p.o. t.i.d. The patient will call us if she has any concerns. She is trying to find a physical therapist, which would help her from a neuro standpoint close to her house. 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 We would like to thank you for letting us participate in her care. They will call us if they have any concerns. By: [id number]. Ronald Sanchez MD /GERMÁN
== END ==
LOC: M.PC 05:26
DX: Z76.0 Encounter for issue of repeat prescription (principal); I69.364 Other paralytic syndrome following cerebral infarction affecting left non-dominant side; G82.20 Paraplegia, unspecified; E03.9 Hypothyroidism, unspecified

== ENCOUNTER → 2019-01-31 | Outpatient (CLI) | payer OTHER ==
[~2019-01-31] MED LIST changes: +NUVIGIL50 MG PO
--- NOTE | 2019-02-05 10:01 | PAINCON ---
[address] [address] PAIN MANAGEMENT CONSULTATION Name: DAVI LAWRENCE Room: [facility] UBALDO Abdalla#: [id number] Admission: 01/31/19 Attend Phys: Gina Sanchez MD Discharge: Date of : 75 Report #: [id number] THIS REPORT FOR: //name// CC: Celestino Suero DATE OF SERVICE: 01/31/2019 CHIEF COMPLAINT: Here for medication renewal. HISTORY: The patient is a 43-year-old female who has been followed in the pain clinic. As you recall, she did have a stroke. 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 Has had a history of right-sided reflex sympathetic dystrophy. She has some flaccid results in her left arm. Does walk and is gaining some strength in her left lower extremity. She has continued with physical therapy. 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 She has returned today for renewal of her medication. She feels that these medications continued to be beneficial. She is considering trying CBD oil with the hopes that this will provide some benefit. She rarely drinks alcoholic beverages. Rates her pain as a 6/10. Continues exercising at home. She would like to renew physical therapy at this juncture. Feels that the medications continue to make her pain tolerable. She has been started on Nuvigil and finds that this seems to be helpful with her severe fatigue. Overall, pain is about 50% improved with her current medical regimen. ALLERGIES: No known drug allergies. CURRENT MEDICATIONS: Alprazolam 0.5 mg q. 8 hours, baclofen 30 mg at bedtime, vitamin D3 5000 units, iron 325 mg, Neurontin 2 tablets in the morning, 1 midday, 2 in the afternoon. Methadone 5 mg 2 tablets in the morning and 2 tablets at bedtime, Remeron 30 mg at bedtime, Movantik 12.5 mg, OxyIR 10 mg q. 4 hours, Restoril 30 mg at bedtime, Synthroid 175 mcg. PAIN CLINIC ASSESSMENT AND PQRS: 1. The patient is not being treated for osteoarthritis. She is not being treated for rheumatoid arthritis. 2. Height 5 feet 6 inches, weight 195 pounds, BMI is 31. 3. Vital Signs: Blood pressure 145/84, heart rate 74, respiratory rate 16, room air saturation 100%, temperature 98.1. 4. Pain intensity 6/10. 5. Fall history: The patient has not fallen in the last 3 months. She does walk with a brace on her foot secondary to inability to dorsiflex her foot. Has a gait consistent with foot drop. 6. Blood thinner. The patient is not on a blood thinning medication. 7. Hypertension. The patient has been treated for hypertension. 8. Opioids greater than 6 weeks. The patient received medication [place] [address] PAIN MANAGEMENT CONSULTATION Name: MELINDADAVI Shyla Room: [facility]#: [id number] Admission: 01/31/19 Attend Phys: Gina Sanchez MD Discharge: Date of : 75 Report #: [id number] source of pain clinic. 9. Risk assessment tool, low for opioid use. 10. Functional assessment tool. 11. Recreational drug use: The patient denies. 12. Tobacco: The patient denies. 13. Alcohol. The patient denies use of alcoholic beverages. Considering trying a small amount of alcohol in the evening. She would like to use this to help relax. PHYSICAL EXAMINATION: GENERAL: The patient is a well-developed, well-nourished white female. Appears her stated age. She is alert and oriented x 3. Does have some right-sided weakness in her mouth. Speech continues to improve. HEENT: Normocephalic, atraumatic. Extraocular eye muscles intact. Sclerae nonicteric. Left nasolabial fold less prominent. HEART: Rate regular S1, S2. ABDOMEN: Nontender. Bowel sounds present. EXTREMITIES: Upper extremity muscle strength on the right judged to be 4+/5 for the major muscle groups in the right upper extremity and 2/5 for the left upper extremity. Continues to have footdrop on the left. Some edema in the lower extremity. IMPRESSION: 1. 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 2. Complex regional pain syndrome involving the right hand, status post karate injury 9 years ago. 3. Hypothyroidism. RECOMMENDATIONS: We discussed treatment options with the patient. At this juncture, we will continue with her medications. She feels that the medications continue to be helpful. She would like to resume physical therapy. I think this will be good. We will also continue with her medications of methadone 10 mg in the morning and 10 mg at noon and 5-10 mg at bedtime. The patient will also continue with oxycodone. She is considering whether use of CBD oil might be efficacious. I think it is a reasonable option to try. The patient feels her pain is generally about 50% improved. Finds that the Nuvigil has been helpful for the severe fatigue associated with her stroke. A script for her medications has been rewritten. We would like to thank you for letting us participate in her care. We hope she continues to improve. <ELECTRONICALLY SIGNED> By: Gina Sanchez MD 02/05/19 1001 [id number]. Ronald Sanchez MD /nt
== END ==
LOC: M.PC 05:35
DX: Z76.0 Encounter for issue of repeat prescription (principal); E03.9 Hypothyroidism, unspecified; G90.511 Complex regional pain syndrome I of right upper limb; Z79.899 Other long term (current) drug therapy; Z86.73 Personal history of transient ischemic attack (TIA), and cerebral infarction without residual deficits; Z79.891 Long term (current) use of opiate analgesic

== ENCOUNTER → 2019-03-28 | Outpatient (CLI) | payer OTHER ==
[~2019-03-28] MED LIST changes: +ROXICODONE15 M1 PO; +ROXICODONE5 MG PO
--- NOTE | ~2019-03-28 | PAINCON ---
[address] [address] PAIN MANAGEMENT CONSULTATION Name: DAVI LAWRENCE Room: [facility] UBALDO Abdalla#: [id number] Admission: 03/28/19 Attend Phys: Gina Sanchez MD Discharge: Date of : 75 Report #: [id number] THIS REPORT FOR: //name// CC: Celestino Sanchez DATE OF SERVICE: 03/28/2019 CHIEF COMPLAINT: Here for medication renewal. HISTORY: The patient is a 43-year-old female who has been followed in the pain clinic. As you recall, she suffered a stroke. She has had some increased pain and discomfort as a result of the stroke. It is her right side that remains functional. This was the side that she suffered the reflex sympathetic dystrophy. Still has some flaccid paralysis involving her left arm as well as her left side. Does note some increased strength with physical therapy. Notes that changes in weather pattern has increased her pain. Overall, with her current medications, she feels she is about 50% improved. She would like to continue with the medication. She continues with her physical therapy activity. 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 ALLERGIES: No known drug allergies. CURRENT MEDICATIONS: Alprazolam 0.5 mg q. 8 hours; baclofen 30 mg at bedtime; vitamin D 5000 units; iron 325 mg; Neurontin 2 tablets in the morning, 1 tablet midday, 2 tablets in the afternoon; methadone 5 mg 2 tablets in the morning, 2 tablets midday; Remeron 30 mg at bedtime, Movantik 12.5 mg, OxyIR 10 mg q. 4 hours, Restoril 30 mg at bedtime, Synthroid 175 mcg. PAIN CLINIC ASSESSMENT AND PQRS: 1. The patient is not being treated for osteoarthritis. She is not being treated for rheumatoid arthritis. 2. Height 5 feet 6 inches, weight 198 pounds, BMI is 31.9. 3. Blood pressure 125/82, heart rate 75, respiratory rate 18, room air saturation 97%, temperature 98.2. 4. Pain intensity 10/03. 5. Fall history: The patient has not fallen in the last 3 months. 6. Blood thinner. The patient is not on a blood thinning medication. 7. Hypertension. The patient is being treated for hypertension. 8. Opioids greater than 6 weeks. The patient received medication from one source the pain clinic. 9. Risk assessment tool is low for opioid use. 10. Functional assessment tool. 11. Recreational drug use: The patient denies. 12. Tobacco: The patient denies use of tobacco. 13. Alcohol. The patient [place] [address] PAIN MANAGEMENT CONSULTATION Name: DAVI LAWRENCE Room: [facility]#: [id number] Admission: 03/28/19 Attend Phys: Gina Sanchez MD Discharge: Date of : 75 Report #: [id number] PHYSICAL EXAMINATION: GENERAL: The patient is a well-developed, well-nourished white female. Appears her stated age. She is alert and oriented x 3. She is accompanied by her . She does continue to have some weakness on the left side. Has a brace on the left foot. HEART: Regular rate. ABDOMEN: Nontender. Bowel sounds present. EXTREMITIES: Upper extremity muscle strength on the right, judged to be 4+/5 for the major muscle groups and strengths on the left 2/5 for the upper extremity. Lower extremity, the patient continues to have foot drop on the left. Some edema in the lower extremity. IMPRESSION: 1. 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 2. Complex regional pain syndrome involving the right side, status post karate injury 9 years ago. 3. Hypothyroidism. RECOMMENDATIONS: We discussed treatment options with the patient. At this juncture, she would like to continue with her medications. She feels that the medications continue to be helpful. A script for her medications have been rewritten. She would like to continue with baclofen, a script for 20 mg one p.o. b.i.d., the patient will continue with gabapentin 300 mg 2 tablets in the morning, 2 tablets midday and 2 tablets at bedtime. The patient will continue with methadone 5 mg 2 tablets a.m., 2 tablets noon, and 2 tablets at bedtime. The patient would like to decrease the amount of Tylenol that she is getting. We will change Percocet 7.5 mg one p.o. q. 4-6 hours to oxycodone 15 mg 1 p.o. t.i.d. This will decrease the amount of Tylenol that the patient is getting. She was receiving about 37.5 mg of oxycodone a day. This will increase her to 45. Hopefully, she will find it easier to her exercises. She will call us if she has any concerns. We would like to thank you for letting us participate in her care. We hope she continues to improve. By: [id number]. Ronald Sanchez MD /nt
== END ==
LOC: M.PC 07:57
DX: G89.4 Chronic pain syndrome (principal); E03.9 Hypothyroidism, unspecified

== ENCOUNTER → 2019-05-23 | Outpatient (CLI) | payer OTHER ==
[~2019-05-23] MED LIST changes: +METHADONE HCL 110 M1 PO; +NARCAN4 MG NARES; +ROXICODONE15 MG PO
--- NOTE | 2019-06-21 09:01 | PAINCON ---
[address] [address] PAIN MANAGEMENT CONSULTATION Name: DAVI LAWRENCE [id number] Admission: 05/23/19 Attend Phys: Gnia Sanchez MD Discharge: Date of : 75 Report #: [id number] THIS REPORT FOR: //name// cc: Celestino Marroquin Bradley L. DO THIS REPORT FOR: //name// CC: Celestino Suero DATE OF SERVICE: 05/23/2019 The patient was seen on 05/23/[address] Ronald Sanchez. PRIMARY PHYSICIAN: Celestino Marroquin DO CHIEF COMPLAINT: Right hand pain. HISTORY OF PRESENT ILLNESS: The patient is a 43-year-old female, who has been followed in the pain clinic for quite some time. As you recall, she injured her right hand while performing martial arts. She continues to have some pain and discomfort in the right arm. Notes some pain and swelling in her lower hand. She suffered a stroke. As a result of the stroke, she has lost some amount of control on the left side. She is experiencing a flaccid paralysis involving her left arm and left side. She is undergoing physical therapy. She is engaged in occupational therapy. Does have a burning, stabbing sensation, which continues to be problematic. Feels that her medications are helpful. They are beneficial in about 40-50% of effectiveness. 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 She would like to have her medications renewed. CURRENT MEDICATIONS: Alprazolam 0.5 mg q.8 hours, baclofen 30 mg at bedtime, vitamin D 5000 units, iron 325 mg, Neurontin 2 tablets morning and 1 tablet midday and 2 tablets afternoon, methadone 5 mg 2 tablets in the morning and 2 tablets midday, Remeron 30 mg at bedtime, Movantik 12.5 mg, OxyIR 10 mg q.4 hours, Restoril 30 mg at bedtime, Synthroid 175 mcg. PAIN CLINIC ASSESSMENT/PQRS: 1. The patient is not being treated for osteoarthritis or rheumatoid arthritis. 2. Height 5 feet 6 inches, weight 203 pounds, BMI is 32.7. 3. Vital signs: Blood pressure 153/92, heart rate 87, respiratory rate 16, room air saturation 98%, temperature 98.6. 4. Fall history: The patient has not fallen in the last 3 months. 5. Blood thinner. The patient is not on a blood thinning medication. 6. Hypertension. The patient is being treated for hypertension. 7. Opioids greater than 6 weeks. The [place] [address] PAIN MANAGEMENT CONSULTATION Name: DAVI LAWRENCE Room: [facility]#: [id number] Admission: 05/23/19 Attend Phys: Gina Sanchez MD Discharge: Date of : 75 Report #: [id number] source, pain clinic. 8. Risk assessment tool, low for opioid use. 9. Functional assessment tool. 10. Recreational drug use: The patient denies. 11. Tobacco: The patient denies use of tobacco. 12. Alcohol. The patient denies use of alcoholic beverages. PHYSICAL EXAMINATION: GENERAL: The patient is a well-developed, well-nourished white female. Appears her stated age. She is alert and oriented x 3. She is accompanied by her . Does have some weakness on the left side. Has a brace on her left foot. HEART: Regular rate. ABDOMEN: Nontender. EXTREMITIES: Upper extremity muscle strength judged to be 4+/5 on the right and left of 2+/5. Lower extremity, the patient notes evidence of footdrop on the left side, some edema in the lower extremity. IMPRESSION: 1. Chronic pain, status post cerebrovascular accident, with paraplegia on the left side. 2. Complex regional pain syndrome involving the right side, status post karate injury 9 years ago. 3. Hypothyroidism. RECOMMENDATIONS: We discussed treatment options with the patient. At this juncture, we will reevaluate her medications. She will continue with methadone 10 mg tablets 1 p.o. t.i.d. She will also continue with Roxicodone 50 mg 1 p.o. t.i.d. The patient will also use Percocet 7.5 mg one p.o. q.4-6 hours p.r.n. for breakthrough pain. The patient will continue with Neurontin 300 mg 1 p.o. t.i.d. She will continue with her Remeron at bedtime for sleep. Script for Restoril has been provided. The patient will have available a Narcan spray if the patient should have some problems with respiratory symptoms, which are thought to be secondary to too much opioid. The patient will also continue with baclofen 20 mg one p.o. b.i.d. Scripts for these medications have been provided. The patient will call us if she has any concerns. We would like to thank you for letting us participate in her care. We hope she continues to improve. <ELECTRONICALLY SIGNED> By: Gina Sanchez MD 06/21/19 0901 [id number] [id number]. MD lavelle Mcgrath
== END ==
LOC: M.PC 02:15
DX: G89.4 Chronic pain syndrome (principal); E03.9 Hypothyroidism, unspecified; Z79.891 Long term (current) use of opiate analgesic; Z86.69 Personal history of other diseases of the nervous system and sense organs

== ENCOUNTER → 2019-08-06 | Outpatient (CLI) | payer OTHER ==
[~2019-08-06] MED LIST changes: +NEURONTIN600 MG PO
--- NOTE | 2019-08-20 22:11 | PAINCON ---
[address] [address] PAIN MANAGEMENT CONSULTATION Name: DAVI LAWRENCE Room: [facility] UBALDO Abdalal#: [id number] Admission: 08/06/19 Attend Phys: Gina Sanchez MD Discharge: Date of : 75 Report #: [id number] THIS REPORT FOR: //name// cc: Celestino Marroquin Bradley L. DO ~ THIS REPORT FOR: //name// CC: Celestino Sanchez DATE OF SERVICE: 08/06/2019 CHIEF COMPLAINT: Here for medication renewal. FOLLOWUIP HISTORY: The patient is a 43-year-old female who has been followed in the pain clinic because of chronic pain. As you may recall, she initially injured her right hand while performing martial arts number of years ago. Because of that she suffered right arm pain. This was pain consistent with reflex sympathetic dystrophy. She then suffered a stroke. Since that time, she has lost some strength on the left side. There is a flaccid paralysis involving her left arm as well as her left side. She has undergone physical therapy. She continues occupational therapy. 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 She feels that her medications continue to be helpful. She feels that they are about 50% effective in helping with her pain control. She has returned today with a desire to renew her medications. 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 CURRENT MEDICATIONS: Alprazolam 0.5 mg every 8 hours, baclofen 30 mg at bedtime, vitamin D 50,000 units, iron 325 mg, Neurontin 2 tablets morning and 2 tablets midday, 2 tablets afternoon, methadone 5 mg 2 tablets in the morning, 2 tablets midday, Remeron 30 mg at bedtime, Movantik 12.5 mg, OxyIR 10 mg every 4 hours, Restoril 30 mg at bedtime, Synthroid 175 mcg. PAIN CLINIC ASSESSMENT/PQRS: 1. The patient is not being treated for rheumatoid arthritis or osteoarthritis. 2. Height 5 feet 6 inches, weight 210 pounds, BMI is 34. 3. Vital Signs, blood pressure 138/72, heart rate 88, respiratory rate 18, room air saturation 98%, temperature 97.9. 4. Pain intensity 7-8/10. 5. Fall history: The patient has not fallen since we saw her last. 6. Blood thinner. The patient is not on a blood thinning medication. 7. Hypertension. The patient is being treated for hypertension. 8. Opioids greater than 6 weeks. The patient receives medication from the pain clinic. 9. Risk assessment tool, low [place] [address] PAIN MANAGEMENT CONSULTATION Name: DAVI LAWRENCE Room: [facility]#: [id number] Admission: 08/06/19 Attend Phys: Gina Sanchez MD Discharge: Date of : 75 Report #: [id number] 10. Functional assessment tool reviewed. 11. Recreational drug use. The patient denies. 12. Tobacco: The patient denies use of tobacco. 13. Alcohol: The patient denies use of alcoholic beverages. PHYSICAL EXAMINATION: GENERAL: The patient is a well-developed, well-nourished white female. Appears her stated age. She is alert and oriented x 3. She is accompanied by her . She does still appear to have some weakness on the left side. Walks with use of a brace on her left foot. HEART: Regular rate. ABDOMEN: Nontender. EXTREMITIES: Upper extremity muscle strength 4+ on the right and 2/5 on the left. Left lower extremity, the patient notes some evidence of foot drop on the left side, has some edema in the lower extremities. IMPRESSION: 1. 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 2. Complex regional pain syndrome involving the right side, status post injury 9 years ago. 3. Hypothyroidism. 4. Hypertension. RECOMMENDATIONS: We discussed treatment options with the patient and her . At this juncture, we will continue with her opioid medications. A script for renewal of her medications has been provided. She will use oxycodone 15 mg 1 tablet p.o. t.i.d. She will also use Restoril 30 mg at bedtime for insomnia. A script for gabapentin 600 mg 1 p.o. t.i.d. will be provided. The patient has been provided a script for Naloxone should she have problems with respiratory problems with respiratory insufficiency. The patient will continue with methadone 10 mg 1 p.o. t.i.d. A script for baclofen 20 mg b.i.d. has been provided. The patient will also take Roxicodone 5 mg 1 p.o. t.i.d. She will call us if she has any concerns. Her will call if he has any concerns. We would like to thank you for letting us to participate in her care. We hope that they continued to do well. Hopefully, school will restart in the fall. <ELECTRONICALLY SIGNED> By: Gina Sanchez MD 08/20/19 2211 [id number]. MD YULISSA Mcgrath
== END ==
LOC: M.PC 05:17
DX: G90.50 Complex regional pain syndrome I, unspecified (principal); I10 Essential (primary) hypertension; E03.9 Hypothyroidism, unspecified; F11.20 Opioid dependence, uncomplicated; Z86.73 Personal history of transient ischemic attack (TIA), and cerebral infarction without residual deficits; Z79.899 Other long term (current) drug therapy

== ENCOUNTER → 2019-10-29 | Outpatient (CLI) | payer OTHER ==
--- NOTE | 2019-11-12 08:25 | PAINCON ---
[address] [address] PAIN MANAGEMENT CONSULTATION Name: DAVI LAWRENCE Room: [facility] LINDY Rm#: [id number] Admission: 10/29/19 Attend Phys: Gina Sanchez MD Discharge: Date of : 75 Report #: [id number] THIS REPORT FOR: //name// cc: Celestino Marroquin Bradley L. DO ~ THIS REPORT FOR: //name// CC: Celestino Sanchez DATE OF SERVICE: 10/29/2019 CHIEF COMPLAINT: Here for medication renewal and were concerned about starting school with COVID virus. HISTORY: The patient is a 44-year-old female who has been followed in the Pain Clinic because of chronic pain. She had originally injured her right arm while doing martial arts. She suffers from reflex sympathetic dystrophy type complaints. She has since suffered a stroke. This involves her left side. There is some flaccid paralysis in the left upper extremity. She also has weakness in her left leg. 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 She feels that her medications are helpful. There is about 50% improvement. She would like to continue with the medications. She rates her pain as a 6/10. She feels that the methadone and oxycodone, both are beneficial. She continues to work hard at reviving her left side. CURRENT MEDICATIONS: Alprazolam 0.5 mg every 8 hours, baclofen 30 mg at bedtime, vitamin D 50,000 units, iron 325 mg, Neurontin 2 tablets morning, 2 tablets midday, and 2 tablets afternoon. Methadone 5 mg 2 tablets morning and 2 tablets midday, Remeron 30 mg at bedtime, Movantik 12.5 mg, OxyIR 10 mg every 4 hours p.r.n., Restoril 30 mg at bedtime and Synthroid 175 mcg. PAIN CLINIC ASSESSMENT AND PQRS: 1. The patient is not being treated for rheumatoid arthritis or osteoarthritis. 2. Height 5 feet 6 inches, weight 216 pounds, BMI is 35. 3. Vital signs: Blood pressure 166/102, heart rate 81, respiratory rate 16, and room air saturation 97%. Second blood pressure 139/80. 4. Pain intensity /10. 5. Fall history: The patient has not fallen since we saw her last. 6. Blood thinner. The patient is not on a blood thinning medication. 7. Hypertension. The patient is being treated for hypertension. 8. Opioids greater than 6 weeks. The patient receives medications from the Pain Clinic. 9. Risk assessment tool, low for opioid use. 10. Functional [place] [address] PAIN MANAGEMENT CONSULTATION Name: DAVI LAWRENCE Room: [facility]#: [id number] Admission: 10/29/19 Attend Phys: Gina Sanchez MD Discharge: Date of : 75 Report #: [id number] 11. Recreational drug use. The patient denies. 12. Tobacco: The patient denies. 13. Alcohol. The patient denies use of alcoholic beverages. PHYSICAL EXAMINATION: GENERAL: The patient is a well-developed, well-nourished white female. Appears her stated age. She is alert and oriented x 3. She is accompanied by her . She still has signs of weakness in the left side involving her left arm, hand and walks with a brace on the left foot. HEART: Regular rate. ABDOMEN: Nontender. EXTREMITIES: Upper extremity muscle strength 4+/5 on the right and 2+ on the left. Lower extremity, the patient notes some evidence of foot drop on the left side. Also, complains of some edema in the lower extremities. IMPRESSION: 1. 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 2. Chronic regional pain syndrome involving the right side, status post injury 9 years ago. 3. Hypothyroidism. 4. Hypertension. RECOMMENDATIONS: We discussed treatment options with the patient. At this juncture, we will continue with her medications. They include oxycodone 15 mg 1 p.o. t.i.d. The patient will also continue to use Restoril 30 mg at bedtime for insomnia. A script for gabapentin 600 mg 1 p.o. t.i.d. has been provided. The patient has been given a script for naloxone, should this medication be necessary. She will continue with methadone 10 mg 1 p.o. t.i.d. A script for baclofen 20 mg b.i.d. has been provided. The patient will also continue with Roxicodone 5 mg 1 p.o. t.i.d. She will call us if she has any concerns. We would like to thank you for letting us participate in her care. We hope she continues to improve. <ELECTRONICALLY SIGNED> By: Gina Sanchez MD 11/12/19 0825 [id number]. Ronald Sanchez MD /nt
== END ==
LOC: M.PC 10:38
PROVIDERS: ATTEND Anesthesiology Pain Medicine
DX: Z76.0 Encounter for issue of repeat prescription (principal); G89.29 Other chronic pain; G82.22 Paraplegia, incomplete; E03.9 Hypothyroidism, unspecified; I10 Essential (primary) hypertension; F11.20 Opioid dependence, uncomplicated; Z79.899 Other long term (current) drug therapy

== ENCOUNTER → 2020-01-14 | Outpatient (CLI) | payer OTHER ==
--- NOTE | ~2020-01-14 | PAINCON ---
[address] [address] PAIN MANAGEMENT CONSULTATION Name: DAVI LAWRENCE Room: [facility] Abdalla#: [id number] Admission: 01/14/20 Attend Phys: Gina Sanchez MD Discharge: Date of : 75 Report #: [id number] THIS REPORT FOR: //name// cc: Ceelstino Marroquin DO Celestino Marroquin DO ~ THIS REPORT FOR: //name// CC: Celestino Sanchez DATE OF SERVICE: 01/14/2020 CHIEF COMPLAINT: The pain medications are helpful. Still having pain in the right hand and arm. Pain is about 50% improved. HISTORY: The patient is a 44-year-old female who has been followed in the pain clinic. 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 She originally injured her arm while performing martial arts. At that time, she suffered reflex sympathetic dystrophy involving the right arm. Still has right arm pain. She has subsequently suffered a stroke. This has left her left side with weakness and flaccid paralysis to some extent. 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 Now because of the COVID-19 pandemic, things have become more complicated. Her continues to work as a teacher. She has returned today for renewal of her medications. She feels that they are beneficial. She has had some problems with getting her medication. Sometimes the pharmacy is somewhat hesitant in giving her medications. She finds that the dispensation of her medications by the pharmacy is confusing. This has caused her more trepidation and stress. She would like to have her medications if possible dispensed as written. CURRENT MEDICATIONS: Alprazolam 0.5 mg q. 8 hours, baclofen 30 mg at bedtime, vitamin D 50,000 units, iron 325 mg; Neurontin 2 tablets in the morning, 2 tablets midday, 2 tablets afternoon; methadone 5 mg 2 tablets morning and 2 tablets midday, Remeron 30 mg at bedtime, Movantik 12.5 mg, OxyIR 10 mg q.4 hours p.r.n., Gozcawrh23 mg at bedtime, Synthroid 175 mcg. PAIN CLINIC ASSESSMENT/PQRS: 1. The patient is not being treated for rheumatoid arthritis or osteoarthritis. 2. Height 5 feet 6 inches, weight 220 pounds, BMI is 35.5. 3. Vital signs: Blood pressure 176/113, 186/103. Heart rate 80, respiratory rate 16, room air saturation 99%, temperature 98.1. 4. Pain intensity 5/10. 5. Fall history: The patient has not fallen since we saw her last. 6. Blood thinner: The patient is not on a blood thinning medication. 7. Hypertension: The patient is not being treated for hypertension. 8. Opioids greater than 6 weeks: The [place] [address] PAIN MANAGEMENT CONSULTATION Name: DAVI LAWRENCE Room: [facility]#: [id number] Admission: 01/14/20 Attend Phys: Gina Sanchez MD Discharge: Date of : 75 Report #: [id number] clinic. 9. Risk assessment tool, low for opioid use. 10. Functional assessment tool, reviewed. 11. Recreational drug use: The patient denies. 12. Tobacco: The patient denies. 13. Alcohol: The patient denies use of alcoholic beverages. PHYSICAL EXAMINATION: GENERAL: The patient is a well-developed, well-nourished white female. Appears her stated age. She is alert and oriented x 3. She is accompanied by a family friend. She still has signs of weakness in her left side involving the left arm, hand and walks with a brace involving her left foot. The patient has a facial covering in place. HEART: Regular rate. ABDOMEN: Nontender. EXTREMITIES: Upper extremity muscle strength judged to be 4+/5 on the right and +2 on the left side with the left arm somewhat more spastic. Lower extremity, the patient notes some evidence of footdrop on the left side, history of edema in the lower extremities. IMPRESSION: 1. 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 2. Chronic regional pain syndrome involving the right side, status post injury 9 years ago. 3. Hypothyroidism. 4. Hypertension. RECOMMENDATIONS: We discussed treatment options with the patient. At this juncture, she feels that her pharmacy is being somewhat unpredictable in getting her medications. Her medications are dispensed initially 4 weeks from the above date and 8 weeks from the above date. The patient states that she has gone on a number of occasions where they would not give her medication and she became short of medications at times. She would like to have her medications dispersed on a more regular rate. We will attach specific days for disbursement of her medications on the scripts at this juncture. The patient will have the Roxicodone provided on 01/14/2020. She will also have the oxycodone 8 weeks on 03/10/2020 and 4 weeks at 02/13/2020. The same dispersions will be provided for methadone. She will call us if she has any concerns. The patient restoril will be 30 mg at bedtime. She will continue with gabapentin 600 mg t.i.d. She will continue with methadone 10 mg 1 p.o. t.i.d. She will continue with baclofen 20 mg b.i.d. The patient will use Roxicodone 5 mg 1 [place] [address] PAIN MANAGEMENT CONSULTATION Name: DAVI LAWRENCE Room: [facility]#: [id number] Admission: 01/14/20 Attend Phys: Gina Sanchez MD Discharge: Date of : 75 Report #: [id number] We would like to thank you for letting us participate in her care. We hope she continues to improve. By: [id number]. Ronald Sanchez MD /GERMÁN
== END ==
LOC: M.PC 08:07
PROVIDERS: ATTEND Anesthesiology Pain Medicine
DX: M79.601 Pain in right arm (principal); M79.641 Pain in right hand; I10 Essential (primary) hypertension; E03.9 Hypothyroidism, unspecified; G89.4 Chronic pain syndrome; F11.20 Opioid dependence, uncomplicated; Z86.73 Personal history of transient ischemic attack (TIA), and cerebral infarction without residual deficits

== ENCOUNTER → 2020-04-07 | Outpatient (CLI) | payer OTHER | LOC: M.PC 07:56 | PROVIDERS: ATTEND Anesthesiology Pain Medicine | DX: M62.838 Other muscle spasm (principal); M79.601 Pain in right arm; I10 Essential (primary) hypertension; E03.9 Hypothyroidism, unspecified; G89.4 Chronic pain syndrome; R53.1 Weakness; Z86.73 Personal history of transient ischemic attack (TIA), and cerebral infarction without residual deficits ==

== ENCOUNTER → 2020-06-30 | Outpatient (CLI) | payer OTHER ==
[~2020-06-30] MED LIST changes: +ASPIRIN PO; +MULTI-VITAMIN1 EAC5 PO; +PROPRANOLOL 4040 MG PO; +ZANAFLEX4 M1 PO
== END ==
LOC: M.PC 07:52
PROVIDERS: ATTEND Anesthesiology Pain Medicine
DX: M79.601 Pain in right arm (principal); E03.9 Hypothyroidism, unspecified; I10 Essential (primary) hypertension; G89.4 Chronic pain syndrome; Z86.73 Personal history of transient ischemic attack (TIA), and cerebral infarction without residual deficits

== ENCOUNTER → 2020-09-22 | Outpatient (CLI) | payer OTHER | LOC: M.PC 11:48 | PROVIDERS: ATTEND Anesthesiology Pain Medicine | DX: M62.81 Muscle weakness (generalized) (principal); G89.4 Chronic pain syndrome; E03.9 Hypothyroidism, unspecified; I10 Essential (primary) hypertension; Z86.73 Personal history of transient ischemic attack (TIA), and cerebral infarction without residual deficits; Z79.899 Other long term (current) drug therapy; Z79.891 Long term (current) use of opiate analgesic; Z90.49 Acquired absence of other specified parts of digestive tract; Z88.1 Allergy status to other antibiotic agents; Z88.8 Allergy status to other drugs, medicaments and biological substances ==

== ENCOUNTER → 2020-12-15 | Outpatient (CLI) | payer OTHER | LOC: M.PC 11:22 | PROVIDERS: ATTEND Anesthesiology Pain Medicine | DX: G89.29 Other chronic pain (principal); M79.601 Pain in right arm; M62.838 Other muscle spasm; I10 Essential (primary) hypertension; E03.9 Hypothyroidism, unspecified; Z86.73 Personal history of transient ischemic attack (TIA), and cerebral infarction without residual deficits; Z79.82 Long term (current) use of aspirin; Z79.899 Other long term (current) drug therapy; Z88.8 Allergy status to other drugs, medicaments and biological substances ==

== ENCOUNTER → 2021-03-09 | Outpatient (CLI) | payer OTHER | LOC: M.PC 08:07 | PROVIDERS: ATTEND Anesthesiology Pain Medicine | DX: G89.29 Other chronic pain (principal); E03.9 Hypothyroidism, unspecified; I10 Essential (primary) hypertension; Z86.73 Personal history of transient ischemic attack (TIA), and cerebral infarction without residual deficits; Z88.8 Allergy status to other drugs, medicaments and biological substances; Z79.899 Other long term (current) drug therapy; Z90.49 Acquired absence of other specified parts of digestive tract ==

== ENCOUNTER → 2021-04-06 | Outpatient (CLI) | payer OTHER | LOC: M.PC 07:50 | PROVIDERS: ATTEND Anesthesiology Pain Medicine | DX: M79.601 Pain in right arm (principal); G89.4 Chronic pain syndrome; E03.9 Hypothyroidism, unspecified; I10 Essential (primary) hypertension; G47.00 Insomnia, unspecified; Z79.82 Long term (current) use of aspirin; Z79.899 Other long term (current) drug therapy ==